=== PATIENT | male | born 1955 | race Caucasian/White ===

== ENCOUNTER 2017-10-03 04:48 | Inpatient (IN) | payer MEDICAID ==
[~2017-10-03] VITALS: Ht 177.8 cm; Wt 88.9 kg
[2017-10-03] VITALS (43 sets, daily range): BP systolic 41–214; BP diastolic 16–104
[2017-10-03] MEDS ORDERED: SODIUM CHLORIDE 0.9% 1,000 ML IV ONE ×3 (05:49→07:05)
[2017-10-03] MEDS ORDERED: MORPHINE SULFATE 4 MG/ML CPJ (NOT FOR IM USE) IV STA (06:04)
[2017-10-03] MEDS ORDERED: ONDANSETRON HCL 4MG/2ML VIAL IV STA (06:04)
[2017-10-03 07:05] LABS: INR 2.7; PROTHROMBIN TIME 28.4 sec (9.4-11.6)
[2017-10-03 07:16] LABS: CHLORIDE 99 mEq/L (98-107); ETHANOL BLOOD < 10 mg/dL; TROPONIN I < 0.02 ng/mL (0.00-0.04)
[2017-10-03 07:17] LABS: MEAN CORPUSCULAR HEMOGLOBIN 34.1 pg (28.0-32.0); MEAN CORPUSCULAR VOLUME 99.5 fL (80.0-94.0); MEAN PLATELET VOLUME 9.3 fl (7.4-10.4); PLATELET 97 x1000/uL (130-400); RED BLOOD CELL COUNT 1.88 mill/uL (4.7-6.1); RED CELL DISTRIBUTION WIDTH 20.3 % (11.6-14.6)
[2017-10-03 07:31] LABS: HEMATOCRIT. 18.7 % (42.0-52.0); HEMOGLOBIN. 6.4 g/dL (14.0-18.0)
[2017-10-03] MEDS ORDERED: METRONIDAZOLE 500 MG PREMIX 100 ML IV ONE (07:45)
[2017-10-03] MEDS ORDERED: VANCOMYCIN 1 G PREMIX 200 ML IV SCH ×2 (07:45→08:15)
[2017-10-03] MEDS ORDERED: PIPERACILLIN/TAZ 3.375G PREMIX 50 ML IV ONE (07:45)
[2017-10-03] MEDS ORDERED: SODIUM CHLORIDE 0.9% 1,000 ML IV SCH ×2 (08:13→13:15)
[2017-10-03] MEDS ORDERED: MAGNESIUM/ALUMINUM HYDROXIDE/SIMETHICONE 30ML UDC PO PRN ×2 (08:15→13:15)
[2017-10-03] MEDS ORDERED: HYDROCODONE/ACETAMINOPHEN 5/325MG TABLET PO PRN ×2 (08:15→13:15)
[2017-10-03] MEDS ORDERED: IPRATROPIUM/ALBUTEROL 0.5-3(2.5)MG/3ML NEB INH SCH (08:15)
[2017-10-03] MEDS ORDERED: DOCUSATE SODIUM 100MG CAPSULE PO PRN ×2 (08:15→13:15)
[2017-10-03] MEDS ORDERED: GUAIFENESIN 200MG/10ML SUGAR FREE UDC PO PRN ×2 (08:15→13:15)
[2017-10-03] MEDS ORDERED: NA PHOS,M-B/NA PHOS,DI-BA ENEMA 118ML PR PRN ×2 (08:15→13:15)
[2017-10-03] MEDS ORDERED: LEVOFLOXACIN 500MG PREMIX 100 ML IV SCH (08:15)
[2017-10-03] MEDS ORDERED: DIPHENHYDRAMINE 50MG/ML VIAL IV PRN ×2 (08:15→13:15)
[2017-10-03] MEDS ORDERED: ONDANSETRON HCL 4MG/2ML VIAL IV PRN ×2 (08:15→13:15)
[2017-10-03 08:26] LABS: PLATELET ESTIMATE DECREASED
[2017-10-03] MEDS ORDERED: PANTOPRAZOLE SODIUM 40 MG/VIAL IV SCH ×2 (09:00→13:15)
[2017-10-03] MEDS ORDERED: SODIUM BICARBONATE 4% (2.4MEQ) 5ML VIAL IV ONE (10:36)
[2017-10-03] MEDS ORDERED: LIDOCAINE HCL 1% 20ML VIAL (Pyxis) INJ ONE (10:36)
[2017-10-03] MEDS ORDERED: EPINEPHRINE 0.1MG/ML (1:10,000) 10ML SYR ONE (10:57)
[2017-10-03] MEDS ORDERED: SODIUM BICARBONATE 7.5% 0.9 MEQ/ML 50ML SYR IV ONE (10:57)
[2017-10-03] MEDS ORDERED: CALCIUM CHLORIDE 1GM/10ML SYR IV ONE (10:57)
[2017-10-03] MEDS ORDERED: NOREPINEPHRINE 4 MG in DEXT 5% WATER 246 ML IV ONE ×2 (11:30→11:45)
[2017-10-03] MEDS ORDERED: ETOMIDATE 2MG/ML 10ML VIAL IV ONE (11:45)
[2017-10-03] MEDS ORDERED: SUCCINYLCHOLINE CHLORIDE 200MG/10ML VIAL IV ONE (11:45)
[2017-10-03] MEDS ORDERED: PROPOFOL 10MG/ML 100ML 100 ML IV ONE (11:45)
[2017-10-03] MEDS ORDERED: PANTOPRAZOLE SODIUM 40 MG/VIAL IV ONE (12:15)
[2017-10-03] MEDS ORDERED: OCTREOTIDE 1,000 MCG in SODIUM CHLORIDE 0.9% 100 ML IV ONE (12:15)
[2017-10-03] MEDS ORDERED: PANTOPRAZOLE 80 MG in SODIUM CHLORIDE 0.9% 100 ML IV SCH (12:15)
[2017-10-03] MEDS ORDERED: OCTREOTIDE ACETATE 50 MCG/ML 1ML IV ONE (12:15)
[2017-10-03 12:25] LABS: MEAN CORPUSCULAR VOLUME 102.6 fL (80.0-94.0); MEAN PLATELET VOLUME 9.3 fl (7.4-10.4); PLATELET 73 x1000/uL (130-400); RED BLOOD CELL COUNT 1.64 mill/uL (4.7-6.1); RED CELL DISTRIBUTION WIDTH 20.5 % (11.6-14.6)
[2017-10-03 12:36] LABS: HEMATOCRIT. 16.8 % (42.0-52.0); HEMOGLOBIN. 5.6 g/dL (14.0-18.0)
[2017-10-03] MEDS: VANCOMYCIN 1 G PREMIX 200 ML IV SCH ×2 (13:15→14:16)
[2017-10-03 13:24] LABS: NUCLEATED RED BLOOD CELLS 1 /100 WBC; PLATELET ESTIMATE DECREASED
[2017-10-03] MEDS ORDERED: PHENYLEPHRINE 40 MG in DEXT 5% WATER 246 ML IV PRN ×2 (13:45→16:30)
[2017-10-03] MEDS ORDERED: METRONIDAZOLE 500 MG PREMIX 100 ML IV SCH (14:00)
[2017-10-03] MEDS: SODIUM CHLORIDE 0.9% INJ 3ML FLUSH IVF SCH ×2 (14:00→21:58)
[2017-10-03] MEDS ORDERED: SODIUM CHLORIDE 0.9% INJ 3ML FLUSH IVF SCH (14:00)
[2017-10-03] MEDS: NOREPINEPHRINE 32 MG in DEXT 5% WATER 468 ML IV PRN (14:11)
[2017-10-03 14:13] LABS: BG BASE EXCESS -18.3 mmol/L (-2.0-2.0); BG CARBOXYHEMOGLOBIN 1.4 % (0.5-1.5); BG DEOXYHEMOGLOBIN 0.5 % (0.0-5.0); BG FRACTION INSPIRED OXYGEN 100; BG HCO3 ACT 10.2 mmol/L (22.0-26.0); BG METHEMOGLOBIN 0.9 % (0.0-1.5); BG OXYGEN SATURATION 99.5 % (92.0-98.5); BG OXYHEMOGLOBIN 97.2 % (94.0-97.0); BG PCO2 36.1 mmHg (35.0-45.0); BG PH 7.067 (7.350-7.450); BG PO2 348.8 mmHg (75.0-100.0); BG SAMPLE SITE RIGHT RADIAL; BG TIDAL VOLUME(mL) 550 mL; BG TOTAL HEMOGLOBIN 5.4 g/dL (12.0-18.0); BG VENT MODE VENT - A/C; BG VENT RATE 16 set
[2017-10-03] MEDS: METRONIDAZOLE 500 MG PREMIX 100 ML IV SCH ×2 (14:16→21:58)
[2017-10-03] MEDS: LEVOFLOXACIN 500MG PREMIX 100 ML IV SCH ×2 (14:16→15:55)
[2017-10-03 14:31] LABS: KETONES URINE TRACE (NEGATIVE); LEUKOCYTE ESTERASE URINE 1+ (NEGATIVE); NITRITE URINE NEGATIVE (NEGATIVE); OCCULT BLOOD URINE 2+ (NEGATIVE); PH URINE 5.5 (4.5-8.0); PROTEIN URINE 1+ (NEGATIVE); SPECIFIC GRAVITY URINE 1.017 (1.005-1.030); UROBILINOGEN URINE 0.2 E.U./dL (0.2-1.0)
[2017-10-03 14:32] LABS: CLARITY URINE HAZY (CLEAR); COLOR URINE AMBER (YELLOW)
[2017-10-03] MEDS ORDERED: SODIUM BICARBONATE 8.4% 1 MEQ/ML 50ML SYR IV NR ×2 (14:45→16:15)
[2017-10-03] MEDS ORDERED: SODIUM BICARBONATE 8.4% 1 MEQ/ML 50ML SYR IV ONE ×2 (14:47→16:16)
[2017-10-03 14:51] LABS: *AMPHETAMINES SCREEN URINE NEGATIVE (NEGATIVE); *BARBITURATES SCREEN URINE NEGATIVE (NEGATIVE); *BENZODIAZEPINES SCREEN URINE NEGATIVE (NEGATIVE); *COCAINE SCREEN URINE NEGATIVE (NEGATIVE); CANNABINOID URINE SCREEN NEGATIVE (NEGATIVE); METHADONE URINE SCREEN NEGATIVE (NEGATIVE); OPIATES URINE SCREEN NEGATIVE (NEGATIVE); PHENCYCLIDINE URINE SCREEN NEGATIVE (NEGATIVE)
[2017-10-03] MEDS: DOPAMINE 400MG PREMIX 250 ML IV PRN ×6 (15:02→23:47)
[2017-10-03] MEDS ORDERED: PHYTONADIONE 10MG/ML AMP SUBCUT SCH (15:30)
[2017-10-03] MEDS: SODIUM BICARBONATE 100 MEQ in DEXTROSE 5% WATER 1,000 ML IV NR (15:51)
[2017-10-03 15:59] LABS: BG BASE EXCESS -21.5 mmol/L (-2.0-2.0); BG CARBOXYHEMOGLOBIN 0.2 % (0.5-1.5); BG DEOXYHEMOGLOBIN 28.2 % (0.0-5.0); BG FRACTION INSPIRED OXYGEN 100; BG METHEMOGLOBIN 0.8 % (0.0-1.5); BG OXYGEN SATURATION 71.5 % (92.0-98.5); BG OXYHEMOGLOBIN 70.8 % (94.0-97.0); BG PCO2 39.8 mmHg (35.0-45.0); BG PH 6.973 (7.350-7.450); BG PO2 44.2 mmHg (75.0-100.0); BG SAMPLE SITE RIGHT BRACHIAL; BG TIDAL VOLUME(mL) 550 mL; BG TOTAL HEMOGLOBIN 8.9 g/dL (12.0-18.0); BG VENT MODE VENT - A/C; BG VENT RATE 20 set
[2017-10-03] MEDS ORDERED: OCTREOTIDE 1,000 MCG in SODIUM CHLORIDE 0.9% 100 ML IV SCH (16:00)
[2017-10-03] MEDS: IPRATROPIUM/ALBUTEROL 0.5-3(2.5)MG/3ML NEB INH SCH ×2 (16:02→20:12)
[2017-10-03 17:02] LABS: BG BASE EXCESS -17.5 mmol/L (-2.0-2.0); BG CARBOXYHEMOGLOBIN 0.3 % (0.5-1.5); BG DEOXYHEMOGLOBIN 1.2 % (0.0-5.0); BG FRACTION INSPIRED OXYGEN 100; BG HCO3 ACT 10.2 mmol/L (22.0-26.0); BG METHEMOGLOBIN 0.7 % (0.0-1.5); BG OXYGEN SATURATION 98.8 % (92.0-98.5); BG OXYHEMOGLOBIN 97.8 % (94.0-97.0); BG PCO2 30.8 mmHg (35.0-45.0); BG PH 7.136 (7.350-7.450); BG PO2 173.3 mmHg (75.0-100.0); BG SAMPLE SITE RIGHT BRACHIAL; BG TIDAL VOLUME(mL) 550 mL; BG TOTAL HEMOGLOBIN 7.8 g/dL (12.0-18.0); BG VENT MODE VENT - A/C; BG VENT RATE 24 set
[2017-10-03] MEDS: PHENYLEPHRINE 80 MG in DEXT 5% WATER 492 ML IV PRN (17:52)
[2017-10-03] MEDS: SODIUM CHLORIDE 0.9% 1,000 ML IV SCH (18:23)
[2017-10-03 18:29] LABS: CHLORIDE 85 mEq/L (98-107); MEAN CORPUSCULAR HEMOGLOBIN 31.6 pg (28.0-32.0); MEAN CORPUSCULAR VOLUME 101.5 fL (80.0-94.0); MEAN PLATELET VOLUME 10.4 fl (7.4-10.4); RED BLOOD CELL COUNT 1.84 mill/uL (4.7-6.1); RED CELL DISTRIBUTION WIDTH 18.6 % (11.6-14.6)
[2017-10-03 18:42] LABS: HEMOGLOBIN. 5.8 g/dL (14.0-18.0)
[2017-10-03 18:43] LABS: HEMATOCRIT. 18.7 % (42.0-52.0); PLATELET 45 x1000/uL (130-400)
[2017-10-03] MEDS ORDERED: VANCOMYCIN 750 MG PREMIX 150 ML IV SCH (20:00)
[2017-10-03 21:24] LABS: ATYPICAL LYMPHOCYTES 1; NUCLEATED RED BLOOD CELLS 1 /100 WBC; PLATELET ESTIMATE MARKEDLY DECREASED
[2017-10-04] VITALS (40 sets, daily range): BP systolic 38–191; BP diastolic 16–77
[2017-10-04] MEDS: IPRATROPIUM/ALBUTEROL 0.5-3(2.5)MG/3ML NEB INH SCH (01:01)
[2017-10-04] MEDS: PHENYLEPHRINE 80 MG in DEXT 5% WATER 492 ML IV PRN ×2 (01:03→07:42)
[2017-10-04] MEDS: DOPAMINE 400MG PREMIX 250 ML IV PRN ×4 (01:37→07:04)
[2017-10-04 01:46] LABS: HEMATOCRIT 27.2 % (42.0-52.0); HEMOGLOBIN 8.6 g/dL (14.0-18.0)
[2017-10-04] MEDS: SODIUM BICARBONATE 100 MEQ in DEXTROSE 5% WATER 1,000 ML IV NR (05:09)
[2017-10-04] MEDS: METRONIDAZOLE 500 MG PREMIX 100 ML IV SCH (05:11)
[2017-10-04] MEDS: SODIUM CHLORIDE 0.9% 1,000 ML IV SCH (05:12)
[2017-10-04] MEDS: SODIUM CHLORIDE 0.9% INJ 3ML FLUSH IVF SCH (05:12)
[2017-10-04 05:36] LABS: HEMATOCRIT 23.2 % (42.0-52.0); HEMOGLOBIN 7.3 g/dL (14.0-18.0)
[2017-10-04] MEDS: NOREPINEPHRINE 32 MG in DEXT 5% WATER 468 ML IV PRN (07:04)
[2017-10-04] MEDS ORDERED: LEVOFLOXACIN 250MG PREMIX 50 ML IV SCH (14:00)
== END 2017-10-04 08:20 | disposition expired | DRG 720 ==
LOC: ER 04:48 → EDBEDREQTM 08:04 → EDBEDREQSVC 08:04 → EDBEDREQ 08:04 → CANRESERV 10:12 → EDBEDREQSVC 10:12 → ENRESERV 10:12 → EDBEDREQTM 10:12 → ENRESERV 10:23 → CANRESERV 10:23 → ENRESERV 10:42 → ER 13:08 → CVICU 13:13
PROVIDERS: ADMIT Family Medicine; ATTEND Family Medicine
PROC: 30233N1 Transfusion of Nonautologous Red Blood Cells into Peripheral Vein, Percutaneous Approach (ICD-10-PCS; principal; 2017-10-03)
PROC: 5A1935Z Respiratory Ventilation, Less than 24 Consecutive Hours (ICD-10-PCS; 2017-10-03)
PROC: 5A12012 Performance of Cardiac Output, Single, Manual (ICD-10-PCS; 2017-10-03)
PROC: 02HV33Z Insertion of Infusion Device into Superior Vena Cava, Percutaneous Approach (ICD-10-PCS; 2017-10-03)
PROC: B548ZZA Ultrasonography of Superior Vena Cava, Guidance (ICD-10-PCS; 2017-10-03)
PROC: 0BH17EZ Insertion of Endotracheal Airway into Trachea, Via Natural or Artificial Opening (ICD-10-PCS; 2017-10-03)
DX: A41.9 Sepsis, unspecified organism (principal); J96.00 Acute respiratory failure, unspecified whether with hypoxia or hypercapnia; I46.9 Cardiac arrest, cause unspecified; R65.21 Severe sepsis with septic shock; G92 Toxic encephalopathy; I85.00 Esophageal varices without bleeding; D68.9 Coagulation defect, unspecified; E87.2 Acidosis; D69.6 Thrombocytopenia, unspecified; D62 Acute posthemorrhagic anemia; F10.20 Alcohol dependence, uncomplicated; K72.90 Hepatic failure, unspecified without coma; K92.2 Gastrointestinal hemorrhage, unspecified; K70.31 Alcoholic cirrhosis of liver with ascites
CPT/HCPCS: 36415; 36569; 36600; 71045; 76937; 80053; 80305; 81001; 82375; 82805; 82962; 83605; 83690; 83880; 84484; 85014; 85018; 85025; 85610; 86850; 86900; 86920; 87040; 87070; 87086; 93005; 94002; 94003; 94640; 94664; C1725; C9113; G0482; J0171; J1265; J1956; J2270; J2354; J2370; J2405; J2543; J2704; J3370; J3430; J3490; J7030; J7040; J7050; J7060; J7070; J7620; P9016; A4315